=== PATIENT | male | born 1980 | race Hispanic/Latino ===

== ENCOUNTER 2017-05-10 10:41 | Outpatient (CLI) | payer BC ==
--- NOTE | 2017-05-10 14:45 | Fluoroscopy Report ---
UPPER GI AIR CONTRAST: History: Dysphagia. FINDINGS: The patient ingested barium without difficulty. No evidence for aspiration. There are no ulcerations or filling defects seen in the esophagus. There is normal esophageal motility. There is no evidence for hiatal hernia. One episode of reflux disease and to the distal esophagus was witnessed during this exam. There does appear to be a small Schatzki's ring in the distal esophagus which does not obstruct. The patient was able to ingest the barium tablet without difficulty. The gastric contour and position appear normal. There are no ulcerations or filling defects in the stomach. The duodenal bulb and duodenal sweep appear normal. IMPRESSION: Small Schatzki's ring in the distal esophagus which is of doubtful clinical significance. This does not appear to obstruct the patient. This is also in a different location of the patient's main complaint of dysphagia in the cervical region. One episode of gastroesophageal reflux into the distal esophagus was witnessed.
== END 2017-05-10 10:42 | disposition home or self-care (01) ==
LOC: FLUORO 10:41
PROVIDERS: ATTEND Family Medicine
DX: K21.9 Gastro-esophageal reflux disease without esophagitis (principal)
CPT/HCPCS: 74246

== ENCOUNTER 2019-12-16 06:43 | Outpatient (CLI) | payer BC ==
[2019-12-16 07:17] LABS: Basophils % (Auto) 0.7 % (0.0-1.8); Eosinophils # (Auto) 0.2 K/mm3 (0.0-0.4); Eosinophils % (Auto) 3.4 % (0.0-4.3); Hematocrit 41.5 % (35.5-45.6); Hemoglobin 14.2 gm/dl (11.8-15.2); Lymphocytes # (Auto) 1.8 K/mm3 (1.2-5.4); Lymphocytes % (Auto) 27.9 % (13.4-35.0); Mean Corpuscular HGB Conc 34 % (32-34); Mean Corpuscular Volume 87 fl (84-94); Monocytes # (Auto) 0.5 K/mm3 (0.0-0.8); Monocytes % (Auto) 7.7 % (0.0-7.3); Platelet Count 241 K/mm3 (140-440); Red Blood Count 4.75 M/mm3 (3.65-5.03); Red Cell Distribution Width 13.4 % (13.2-15.2)
[2019-12-16 07:21] LABS: Bilirubin,Urine NEG (Negative); Blood,Urine NEG (Negative); Color,Urine Straw (Yellow); Protein,Urine <15 mg/dL mg/dL (Negative); Urobilinogen,Urine < 2.0 mg/dL (<2.0)
[2019-12-16 07:40] LABS: Alanine Aminotransferase 29 units/L (7-56); Albumin 4.4 g/dL (3.9-5); BUN/Creatinine Ratio 12; Blood Urea Nitrogen 14 mg/dL (9-20); Calcium 9.5 mg/dL (8.4-10.2); HDL Cholesterol 54 mg/dL (40-59); Hemolysis Index 3; LDL Cholesterol,Direct 108 mg/dL (50-130)
[2019-12-16 07:41] LABS: WBC,Urine < 1.0 /HPF (0.0-6.0)
== END 2019-12-16 06:44 | disposition home or self-care (01) ==
LOC: LAB 06:43
PROVIDERS: ATTEND Nurse Practitioner Family
DX: Z00.00 Encounter for general adult medical examination without abnormal findings (principal); E78.2 Mixed hyperlipidemia; Z13.29 Encounter for screening for other suspected endocrine disorder; Z13.220 Encounter for screening for lipoid disorders
CPT/HCPCS: 36415; 80053; 80061; 81001; 84443; 85025